=== PATIENT | female | born 1940 | race Caucasian/White ===

== ENCOUNTER 2019-12-31 04:35 | Inpatient (IN) | payer MEDICARE ==
[~2019-12-31] VITALS: Ht 167.6 cm; Wt 75.2 kg
[2019-12-31] MEDS ORDERED: DILTIAZEM 5 MG/ML, 5ML ONE (04:49)
[2019-12-31] MEDS ORDERED: DILTIAZEM 5 MG/ML, 5ML IVPush ONE (05:00)
[2019-12-31] MEDS ORDERED: ASPIRIN 325 MG TABLET ONE (05:00)
[2019-12-31] MEDS ORDERED: ASPIRIN 325 MG TABLET PO ONE (05:00)
[2019-12-31] MEDS ORDERED: ONDANSETRON 2MG/ML, 2ML ONE (05:10)
[2019-12-31] MEDS ORDERED: MORPHINE SULFATE 4 MG/ML, 1ML ONE (05:10)
[2019-12-31] MEDS ORDERED: MULTIVITAMIN (05:22)
[2019-12-31] MEDS ORDERED: ONDANSETRON 2MG/ML, 2ML IVPush ONE (05:30)
[2019-12-31] MEDS ORDERED: MORPHINE SULFATE 4 MG/ML, 1ML IVPush PRN (05:30)
[2019-12-31 05:48] LABS: ALBUMIN 3.6 g/dL (3.4-5.0); ANION GAP 10 mmol/L (5-15); CALCIUM 8.9 mg/dL (8.5-10.1); CHLORIDE 107 mmol/L (98-107); CREATININE 0.85 mg/dL (0.55-1.02)
--- NOTE | 2019-12-31 05:49 | NUR ---
PT FEELING MUCH BETTER BUT STILL COMPLAINS OF A HEAVINESS IN HER CHEST. PT REQUESTING HER ENIGHBOR WHOM DROPPED HER OFF COME BACK TO HER ROOM. LOBBY WAS SEARCHED NOBODY IN LOBBY. TRIAGE SCREENER STATES THE GIRLS WHOM DROPPED HER OFF LEFT SHORTLY AFTER THE PT CHECKED IN. PT INFORMED. PT DENIES FURTHER NEEDS AT THIS TIME.
[2019-12-31 05:52] LABS: TROPONIN I < 0.015 ng/mL (0.000-0.045)
[2019-12-31 05:55] LABS: BASOPHILS # (AUTO) 0.01 x10^3/uL (0-0.1); BASOPHILS % (AUTO) 0 % (0-1); EOSINOPHILS # (AUTO) 0.03 x10^3/uL (0-0.4); EOSINOPHILS % (AUTO) 0 % (1-7); LYMPHOCYTES # (AUTO) 0.93 x10^3/uL (1-3.4); LYMPHOCYTES % (AUTO) 6 % (22-44); MD NO; MEAN CORPUSCULAR HEMOGLOBIN 23.2 pg (27.0-34.8); MEAN CORPUSCULAR HGB CONC 31.4 g/dL (32.4-35.8); MEAN CORPUSCULAR VOLUME 74.1 fL (80-100); MEAN PLATELET VOLUME 10.8 fL (7.4-10.4); MONOCYTES # (AUTO) 0.73 x10^3/uL (0.2-0.8); MONOCYTES % (AUTO) 5 % (2-9); NEUTROPHILS # (AUTO) 13.68 x10^3/uL (1.8-6.8); NEUTROPHILS % (AUTO) 89 % (42-75); PLATELET COUNT 176 x10^3/uL (130-400); RED BLOOD COUNT 5.44 x10^6/uL (3.82-5.3); RED CELL DISTRIBUTION WIDTH 16.2 % (9.6-15.2)
--- NOTE | 2019-12-31 06:21 | NUR ---
PT NOW WITH MINIMAL CHEST PRESSURE. PT STATES SHE WANTS TO LEAVE AND COME BACK LATER. PT WAS INFORMED THE DOCTOR STRONGLY WANTS HER TO STAY AND HAVE A CARDIAC WORKUP. AFTER MUCH CONVERSATION PT AGREEABLE TO STAY. PT EXPRESSING CONCERNS THAT SHE WILL MISS HER PCP APPOINTMENT TOMORROW. PT WAS INFORMED HER PCP CAN OBTAIN THE HOSPITAL RECORDS AND WHEN SHE SPEAKS TO THE ADMITTING MD SHE CAN ASK HIM TO CONTACT HER PCP SO THEY CAN FORMULATE A PLAN. PT AGREEABLE TO THIS. PT GIVEN CUP OF ICE WATER PER REQUEST. PT DENIES FURTHER NEEDS AT THIS TIME. CALL LIGHT ON LAP.
[2019-12-31 06:33] LABS: INTERNATIONAL NORMALIZED RATIO 1.07 (0.93-1.1); PROTHROMBIN TIME 11.4 Seconds (9.6-11.5)
--- NOTE | 2019-12-31 07:31 | NUR ---
HR 88 - 139 WHILE PT RESTING IN BED. PT STATED SOMETIMES SHE FEELS CHEST PRESSURE, NONE RIGHT NOW. WILL CONTINUE TO MONITOR. STILL AWAITING ROOM ASSIGNMENT.
--- NOTE | 2019-12-31 07:41 | NUR ---
HOSPITALIST IN SPEAKING WITH PT.
--- NOTE | 2019-12-31 08:22 | NUR ---
NO LACTIC ACID ORDERED ON PT. DISCUSSED WITH HOSPITALIST PER SEPSIS FLOW SHEET PT MEETS CRITERIA FOR SEPSIS WORK-UP. PT HOSPITALIST STATED PT IS A-FIB c RVR AND A PNEUOMONIA, AND FALLS UNDER SIRS CRITERIA. PT DOES NOT MEET ANY CRITERIA IN SECTION C OF SEPSIS FLOW SHEET. PER HOSPITALIST NO LACTIC ACID TO BE ORDERED AT THIS TIME.
[2019-12-31] MEDS ORDERED: ONDANSETRON 2MG/ML, 2ML IVPush PRN (08:30)
[2019-12-31] MEDS ORDERED: HEPARIN 5,000 UNITS/ML, 1ML SQ SCH (08:30)
[2019-12-31] MEDS ORDERED: LABETALOL 5MG/ML, 20ML IVPush PRN (08:30)
--- NOTE | 2019-12-31 08:38 | NUR ---
REPORT TO MILAGROS TIAN FOR ROOM [id number]
[2019-12-31 08:59] VITALS: BP 135/105
[2019-12-31] MEDS ORDERED: HEPARIN 5,000 UNITS/ML, 1ML IV ONE (09:00)
[2019-12-31 09:16] LABS: TROPONIN I < 0.015 ng/mL (0.000-0.045)
[2019-12-31] MEDS: DILTIAZEM 125 MG in SODIUM CHLORIDE 0.9% 100 ML IV SCH (09:37)
[2019-12-31] MEDS: LEVOFLOXACIN/PMX 750MG/150ML 150 ML IV SCH (09:48)
[2019-12-31] MEDS: HEPARIN 25,000 UNITS/250ML PMX 250 ML IV PRN (11:44)
[2019-12-31 12:55] VITALS: BP 128/85
[2019-12-31] MEDS: morphine SULFATE 10 MG/ML, 1ML IVPush PRN ×2 (13:20→22:04)
[2019-12-31 14:51] LABS: TROPONIN I < 0.015 ng/mL (0.000-0.045)
[2019-12-31] MEDS: HEPARIN 5,000 UNITS/ML, 1ML IV PRN (19:48)
[2019-12-31 21:18] VITALS: BP 128/93
[2020-01-01 01:54] VITALS: BP 128/91
[2020-01-01 02:14] LABS: BASOPHILS # (AUTO) 0.02 x10^3/uL (0-0.1); BASOPHILS % (AUTO) 0 % (0-1); EOSINOPHILS # (AUTO) 0.03 x10^3/uL (0-0.4); EOSINOPHILS % (AUTO) 0 % (1-7); LYMPHOCYTES # (AUTO) 1.13 x10^3/uL (1-3.4); LYMPHOCYTES % (AUTO) 16 % (22-44); MD NO; MEAN CORPUSCULAR HEMOGLOBIN 23.3 pg (27.0-34.8); MEAN CORPUSCULAR HGB CONC 31.6 g/dL (32.4-35.8); MEAN CORPUSCULAR VOLUME 73.9 fL (80-100); MEAN PLATELET VOLUME 10.3 fL (7.4-10.4); MONOCYTES # (AUTO) 0.95 x10^3/uL (0.2-0.8); MONOCYTES % (AUTO) 14 % (2-9); NEUTROPHILS # (AUTO) 4.95 x10^3/uL (1.8-6.8); NEUTROPHILS % (AUTO) 70 % (42-75); PLATELET COUNT 149 x10^3/uL (130-400); RED BLOOD COUNT 4.58 x10^6/uL (3.82-5.3); RED CELL DISTRIBUTION WIDTH 16.1 % (9.6-15.2)
[2020-01-01 02:25] LABS: ANION GAP 3 mmol/L (5-15); CALCIUM 8.4 mg/dL (8.5-10.1); CHLORIDE 104 mmol/L (98-107); CREATININE 0.66 mg/dL (0.55-1.02)
[2020-01-01] MEDS: ACETAMINOPHEN 325 MG TABLET PO PRN (02:40)
[2020-01-01] MEDS: HEPARIN 5,000 UNITS/ML, 1ML IV PRN ×2 (02:41→16:20)
[2020-01-01] MEDS ORDERED: ASPIRIN 325 MG TABLET EC PO SCH (06:00)
[2020-01-01 06:36] VITALS: BP 109/75
[2020-01-01] MEDS: LEVOFLOXACIN/PMX 750MG/150ML 150 ML IV SCH (09:25)
[2020-01-01 09:57] LABS: CHOL/HDL RATIO 2.6; LDL/HDL RATIO 1.3 (0.5-3.0)
[2020-01-01] MEDS: DILTIAZEM 125 MG in SODIUM CHLORIDE 0.9% 100 ML IV SCH (10:09)
[2020-01-01 12:09] VITALS: BP 127/76
[2020-01-01] MEDS: HEPARIN 25,000 UNITS/250ML PMX 250 ML IV PRN (12:57)
[2020-01-01] MEDS: METOPROLOL TARTRATE 25 MG TAB PO SCH (18:15)
[2020-01-01 20:23] VITALS: BP 129/85
[2020-01-01] MEDS: morphine SULFATE 10 MG/ML, 1ML IVPush PRN (21:40)
[2020-01-01] MEDS ORDERED: FUROSEMIDE 20 MG/2 ML IV ONE (23:00)
[2020-01-01] MEDS ORDERED: GUAIFENESIN/DM 200-20MG, 10ML UDC PO PRN (23:00)
[2020-01-02 02:11] VITALS: BP 98/61
[2020-01-02] MEDS: ACETAMINOPHEN 325 MG TABLET PO PRN ×2 (02:18→10:53)
[2020-01-02 04:29] VITALS: BP 102/65
[2020-01-02 07:19] VITALS: BP 99/60
[2020-01-02] MEDS ORDERED: DILTIAZEM 125 MG in SODIUM CHLORIDE 0.9% 100 ML IV SCH (08:30)
[2020-01-02] MEDS: METOPROLOL TARTRATE 25 MG TAB PO SCH ×2 (08:59→20:52)
[2020-01-02] MEDS ORDERED: DIGOXIN 0.25 MG/ML, 2ML IVPush ONE ×3 (09:30→18:00)
[2020-01-02 13:24] VITALS: BP 116/73
[2020-01-02] MEDS: HEPARIN 25,000 UNITS/250ML PMX 250 ML IV PRN (13:45)
[2020-01-02] MEDS ORDERED: DIGOXIN 0.25 MG/ML, 2ML IVPush SCH (14:00)
[2020-01-02 20:08] VITALS: BP 132/98
[2020-01-02] MEDS: morphine SULFATE 10 MG/ML, 1ML IVPush PRN (22:50)
[2020-01-03] VITALS (8 sets, daily range): BP systolic 124–165; BP diastolic 63–108
[2020-01-03] MEDS ORDERED: hydrALAzine 20 MG/ML, 1ML IV PRN (00:30)
[2020-01-03] MEDS: ACETAMINOPHEN 325 MG TABLET PO PRN ×2 (01:10→09:27)
[2020-01-03] MEDS: SIMETHICONE 80 MG CHEW TAB PO PRN ×2 (01:25→09:26)
[2020-01-03 05:56] LABS: ANION GAP 5 mmol/L (5-15); CALCIUM 8.8 mg/dL (8.5-10.1); CHLORIDE 105 mmol/L (98-107); CREATININE 0.64 mg/dL (0.55-1.02)
[2020-01-03] MEDS: HEPARIN 5,000 UNITS/ML, 1ML IV PRN (05:56)
[2020-01-03] MEDS: METOPROLOL TARTRATE 25 MG TAB PO SCH ×2 (05:56→17:25)
[2020-01-03 06:05] LABS: BASOPHILS % (AUTO) 0 % (0-1); EOSINOPHILS # (AUTO) 0.03 x10^3/uL (0-0.4); EOSINOPHILS % (AUTO) 0 % (1-7); LYMPHOCYTES # (AUTO) 0.73 x10^3/uL (1-3.4); LYMPHOCYTES % (AUTO) 9 % (22-44); MD NO; MEAN CORPUSCULAR HEMOGLOBIN 23.3 pg (27.0-34.8); MEAN CORPUSCULAR HGB CONC 31.1 g/dL (32.4-35.8); MEAN PLATELET VOLUME 10.3 fL (7.4-10.4); MONOCYTES # (AUTO) 0.56 x10^3/uL (0.2-0.8); MONOCYTES % (AUTO) 7 % (2-9); NEUTROPHILS # (AUTO) 6.52 x10^3/uL (1.8-6.8); NEUTROPHILS % (AUTO) 83 % (42-75); PLATELET COUNT 183 x10^3/uL (130-400); RED BLOOD COUNT 4.88 x10^6/uL (3.82-5.3); RED CELL DISTRIBUTION WIDTH 16.2 % (9.6-15.2)
[2020-01-03] MEDS ORDERED: LEVOFLOXACIN/PMX 750MG/150ML 150 ML IV SCH (09:00)
[2020-01-03] MEDS: DIGOXIN 0.125 MG TABLET PO SCH (09:14)
[2020-01-03] MEDS: LISINOPRIL 5 MG TABLET PO SCH (09:14)
[2020-01-03] MEDS ORDERED: APIXABAN 5 MG TABLET ONE (09:21)
[2020-01-03] MEDS: APIXABAN 5 MG TABLET PO SCH ×2 (09:25→22:23)
[2020-01-03] MEDS: FUROSEMIDE 20 MG TABLET PO SCH (09:27)
[2020-01-03] MEDS ORDERED: POTASSIUM CHLORIDE 20 MEQ TAB.ER.PRT PO SCH (09:30)
[2020-01-03] MEDS ORDERED: IRON SUCROSE COMPLEX 100MG/5ML IV ONE (15:00)
[2020-01-04] MEDS: SIMETHICONE 80 MG CHEW TAB PO PRN ×2 (01:34→09:12)
[2020-01-04] MEDS: morphine SULFATE 10 MG/ML, 1ML IVPush PRN ×2 (01:39→02:08)
[2020-01-04 02:31] VITALS: BP 143/98
[2020-01-04] MEDS: METOPROLOL TARTRATE 25 MG TAB PO SCH (06:14)
[2020-01-04 06:54] LABS: ANION GAP 7 mmol/L (5-15); CALCIUM 9.1 mg/dL (8.5-10.1); CHLORIDE 107 mmol/L (98-107); CREATININE 0.51 mg/dL (0.55-1.02)
[2020-01-04 07:40] VITALS: BP 130/77
[2020-01-04] MEDS: FUROSEMIDE 20 MG TABLET PO SCH (09:00)
[2020-01-04] MEDS ORDERED: ASCORBIC ACID 500 MG TABLET PO SCH (09:00)
[2020-01-04] MEDS: APIXABAN 5 MG TABLET PO SCH (09:00)
[2020-01-04] MEDS ORDERED: SPIRONOLACTONE 25 MG TABLET PO SCH (09:00)
[2020-01-04] MEDS: LISINOPRIL 5 MG TABLET PO SCH (09:01)
[2020-01-04] MEDS: DIGOXIN 0.125 MG TABLET PO SCH (09:01)
[2020-01-04] MEDS ORDERED: METO25TA35 PO (11:06)
[2020-01-04] MEDS ORDERED: APIX5TAB PO (11:06)
[2020-01-04] MEDS ORDERED: FERR-51 PO (11:06)
[2020-01-04] MEDS ORDERED: DIGO125T85 PO (11:06)
[2020-01-04] MEDS ORDERED: FURO20TA3 PO (11:06)
[2020-01-04] MEDS ORDERED: SPIR25TA PO (11:06)
[2020-01-04] MEDS ORDERED: LISI5TAB7 PO (11:06)
[2020-01-05] MEDS ORDERED: FERROUS SULFATE 325 MG TABLET PO SCH (09:00)
== END 2020-01-04 13:30 | disposition home health service (06) | DRG 308 ==
LOC: ED 05:51 → EDIP 06:10 → 5SO 08:35 → EDIP 08:43 → 5SO 08:49 → DCLOUNGE 01-04 13:11
PROVIDERS: ADMIT Hospitalist; ATTEND Internal Medicine Infectious Disease
PROC: 5A2204Z Restoration of Cardiac Rhythm, Single (ICD-10-PCS; principal; 2019-12-31)
DX: I48.91 Unspecified atrial fibrillation (principal); I50.43 Acute on chronic combined systolic (congestive) and diastolic (congestive) heart failure; J96.01 Acute respiratory failure with hypoxia; D68.69 Other thrombophilia; J91.8 Pleural effusion in other conditions classified elsewhere; I42.0 Dilated cardiomyopathy; D50.9 Iron deficiency anemia, unspecified; K58.9 Irritable bowel syndrome, unspecified; I08.1 Rheumatic disorders of both mitral and tricuspid valves; R00.1 Bradycardia, unspecified; E66.9 Obesity, unspecified; Z88.0 Allergy status to penicillin; Z79.899 Other long term (current) drug therapy; Z68.26 Body mass index [BMI] 26.0-26.9, adult
CPT/HCPCS: 36415; 71045; 80048; 80061; 80162; 82040; 82728; 83540; 83550; 83605; 83735; 83880; 84100; 84145; 84443; 84466; 84484; 85018; 85025; 85520; 85610; 87040; 93005; 93306; 96374; G0378; J1644; J1956; J2405; J0360; J1160; J1940; J2270

== ENCOUNTER 2020-04-11 08:05 | Day surgery (SDC) | payer MEDICARE ==
[~2020-04-11] VITALS: Ht 167.6 cm; Wt 71.4 kg
[~2020-04-11 08:05] MED LIST: APIX5TAB PO; DIGO125T85 PO; FERR-51 PO; FURO20TA3 PO; LISI5TAB7 PO; METO25TA35 PO; MULTIVITAMIN; SPIR25TA PO
[2020-04-11] MEDS ORDERED: SODIUM CHLORIDE 0.9% 1,000 ML IV SCH ×2 (09:14→13:00)
[2020-04-11 09:27] VITALS: BP 115/71
[2020-04-11] MEDS ORDERED: PLEASE ENTER HEIGHT AND WEIGHT MC SCH (09:30)
[2020-04-11] MEDS ORDERED: SODIUM CHLORIDE 0.9% 1,000 ML IV ONE (09:30)
[2020-04-11] MEDS ORDERED: LOSA25TA25 PO (09:46)
[2020-04-11] MEDS ORDERED: RIVA20TA PO (09:46)
[2020-04-11] MEDS ORDERED: METO25TA91 PO (09:46)
[2020-04-11 09:58] LABS: BASOPHILS # (AUTO) 0.02 x10^3/uL (0-0.1); BASOPHILS % (AUTO) 0 % (0-1); EOSINOPHILS # (AUTO) 0.12 x10^3/uL (0-0.4); EOSINOPHILS % (AUTO) 3 % (1-7); LYMPHOCYTES # (AUTO) 0.99 x10^3/uL (1-3.4); LYMPHOCYTES % (AUTO) 21 % (22-44); MD NO; MEAN CORPUSCULAR HGB CONC 30.8 g/dL (32.4-35.8); MEAN CORPUSCULAR VOLUME 74.5 fL (80-100); MEAN PLATELET VOLUME 8.6 fL (7.4-10.4); MONOCYTES # (AUTO) 0.46 x10^3/uL (0.2-0.8); MONOCYTES % (AUTO) 10 % (2-9); NEUTROPHILS # (AUTO) 3.23 x10^3/uL (1.8-6.8); NEUTROPHILS % (AUTO) 67 % (42-75); PLATELET COUNT 239 x10^3/uL (130-400); RED BLOOD COUNT 5.05 x10^6/uL (3.82-5.3); RED CELL DISTRIBUTION WIDTH 16.8 % (9.6-15.2)
[2020-04-11] MEDS ORDERED: PROPOFOL 10 MG/ML, 20ML ONE (10:03)
[2020-04-11 10:08] LABS: ANION GAP 6 mmol/L (5-15); CALCIUM 9.5 mg/dL (8.5-10.1); CHLORIDE 107 mmol/L (98-107); CREATININE 0.73 mg/dL (0.55-1.02)
[2020-04-11] MEDS ORDERED: BIVALIRUDIN 250 MG ONE (10:32)
[2020-04-11] MEDS ORDERED: TICAGRELOR 90 MG TABLET ONE (10:32)
[2020-04-11] MEDS ORDERED: MIDAZOLAM 1 MG/ML, 5ML ONE (10:32)
[2020-04-11] MEDS ORDERED: VERAPAMIL 2.5 MG/ML, 2ML ONE (10:32)
[2020-04-11] MEDS ORDERED: FENTANYL PF 100 MCG/2ML ONE (10:32)
[2020-04-11] MEDS ORDERED: HEPARIN 1,000 UNITS/ML, 10ML ONE (10:32)
[2020-04-11] MEDS ORDERED: LIDOCAINE 2%, 20ML ONE (10:32)
== END 2020-04-11 15:08 | disposition home or self-care (01) ==
LOC: CACL 08:05
PROVIDERS: ATTEND Internal Medicine Cardiovascular Disease
DX: I34.0 Nonrheumatic mitral (valve) insufficiency (principal); Z20.828 Contact with and (suspected) exposure to other viral communicable diseases; I25.10 Atherosclerotic heart disease of native coronary artery without angina pectoris; I25.83 Coronary atherosclerosis due to lipid rich plaque; I48.91 Unspecified atrial fibrillation; I42.8 Other cardiomyopathies; I11.0 Hypertensive heart disease with heart failure; I50.23 Acute on chronic systolic (congestive) heart failure; I77.1 Stricture of artery; E78.5 Hyperlipidemia, unspecified; Z79.01 Long term (current) use of anticoagulants; Z79.899 Other long term (current) drug therapy; Z88.0 Allergy status to penicillin
CPT/HCPCS: 36415; 80048; 85025; 87635; 93312; 93321; 93325; 93458; 99156; 99157; C1760; C1769; C1894; J1644; J2250; J2704; J3010; Q9967; J0583